=== PATIENT | male | born 1955 | race Caucasian/White ===

== ENCOUNTER 2016-08-29 16:22 | Inpatient (IN) | payer OTHER ==
[~2016-08-29] VITALS: Ht 304.8 cm; Wt 110.2 kg
[~2016-08-29 16:22] MED LIST: ADVAIR 250/501 DISK IH; ADVIL,NUPRIN,M200 MG PO; CADUET 10/101 TABLET PO; DALIRESP500 MCG PO; KLONOPIN0.5 M1 PO; LORTAB 5-325 M1 EACH PO; NICOTINE PATCH1 EAC2 TD; ONE-A-DAY ESSE1 EAC1 PO; PROAIR HFA8.5 GM IH; SPIRIVA1 INHALATI IH; THEO-DUR,THEOC200 MG PO; THERAGRAN1 TABLET PO; VENTOLIN HFA18 GM IH; VITAMIN B-1100 MG PO
[2016-08-29 17:37] LABS: ADD MIUA? YES; BILIRUBIN NEGATIVE; BLOOD LARGE; COLOR YELLOW ((YELLOW)); GLUCOSE (STRIP) NEGATIVE; KETONES NEGATIVE; LEUKOCYTES LARGE; NITRITE POSITIVE; PROTEIN (STRIP) 100; UROBILINOGEN 0.2 MG/DL (0.2-1.0)
[2016-08-29 17:44] LABS: CHLORIDE 97 mEq/L (99-109); POTASSIUM 4.4 mEq/L (3.7-5.4); SODIUM 138 mEq/L (136-147)
[2016-08-29 17:46] LABS: GLUCOSE 114 mg/dL (70-99)
[2016-08-29 17:47] LABS: ANION GAP 14 MEQ/L (2-14)
[2016-08-29 17:50] LABS: GFR ESTIMATE (CALCULATED) > 59 mL/min/
[2016-08-29 17:51] LABS: UREA NITROGEN (BUN) 21 mg/dL (9-23)
[2016-08-29 17:54] LABS: BACTERIA NONE SEEN /HPF; EPITHELIAL CELLS NONE SEEN /HPF; MUCUS TRACE /LPF; RED BLOOD CELLS TNTC /HPF (0-5); UCUL ADDED? YES; WHITE BLOOD CELLS TNTC /HPF (0-5)
[2016-08-29 18:41] LABS: ADD MIUA? YES; BILIRUBIN NEGATIVE; BLOOD LARGE; COLOR YELLOW ((YELLOW)); GLUCOSE (STRIP) NEGATIVE; KETONES NEGATIVE; LEUKOCYTES LARGE; NITRITE NEGATIVE; PROTEIN (STRIP) 30; SPECIFIC GRAVITY 1.015 (1.000-1.030); UROBILINOGEN 0.2 MG/DL (0.2-1.0)
[2016-08-29 18:59] LABS: UCUL ADDED? NO
[2016-08-29] MEDS ORDERED: AMLODIPINE BESY10 MG PO (20:25)
[2016-08-29] MEDS ORDERED: ATORVASTATIN CA10 MG PO (20:26)
[2016-08-29] MEDS ORDERED: METOLAZONE5 MG PO (20:26)
[2016-08-29] MEDS ORDERED: MICRO-K10 ME2 PO (20:27)
[2016-08-29] MEDS ORDERED: PROVENTIL,2.5 MG/3 M IH (20:27)
[2016-08-29] MEDS ORDERED: VITAMIN D31000 UNIT PO (20:27)
[2016-08-29] MEDS ORDERED: PRILOSEC OTC20 MG PO (20:28)
[2016-08-29] MEDS ORDERED: FOLIC ACID0.4 MG PO (20:28)
[2016-08-29] MEDS ORDERED: PERCOCET 5/31 TABLET PO (20:28)
[2016-08-29 21:00] LABS: TOTAL BILIRUBIN 0.4 mg/dL (0.0-1.0)
[2016-08-29 21:04] LABS: ALKALINE PHOSPHATASE 150 IU/L (3-129)
[2016-08-29 21:14] LABS: DIRECT BILIRUBIN 0.2 mg/dL (0.0-0.3)
[2016-08-29 21:48] LABS: BASOPHIL COUNT 0.1 K/uL (0-0.1); EOSINOPHIL (%) 3.8 % (0-5); EOSINOPHIL COUNT 0.6 K/uL (0-0.3); HEMATOCRIT 40.9 % (38.0-50.0); IMMATURE GRANULOCYTE (%) 0.6 % (0.0-0.7); IMMATURE GRANULOCYTE COUNT 0.1 K/uL; LYMPHOCYTE COUNT 1.9 K/uL (1.0-2.8); MCH 30.3 PG (29.0-34.0); MCHC 32.3 G/DL (30.0-36.0); MCV 93.8 FL (86-99); MONOCYTE (%) 7.7 % (3-12); MONOCYTE COUNT 1.2 K/uL (0-0.8); NEUTROPHIL (%) 75.5 % (45-76); PLATELET COUNT 327 K/uL (156-360); RBC DIS.WIDTH-CV 14.4 % (11.8-14.6); RBC DIS.WIDTH-SD 49.7 % (39-53); RED BLOOD COUNT 4.36 M/uL (4.00-5.50); WHITE BLOOD COUNT 15.9 K/uL (4.1-10.2)
[2016-08-29 21:58] VITALS: BP 155/76
[2016-08-29 23:53] VITALS: BP 137/71
[2016-08-30 00:09] LABS: D-DIMER ELISA 1.08 mg/L FEU (< 0.57)
[2016-08-30 04:16] VITALS: BP 131/70
[2016-08-30 05:33] LABS: BASOPHIL COUNT 0.1 K/uL (0-0.1); EOSINOPHIL (%) 4.9 % (0-5); EOSINOPHIL COUNT 0.6 K/uL (0-0.3); HEMATOCRIT 33.8 % (38.0-50.0); IMMATURE GRANULOCYTE (%) 0.4 % (0.0-0.7); IMMATURE GRANULOCYTE COUNT 0.1 K/uL; INSTRUMENT ABS NEUTROPHIL CT 9.5 K/uL; LYMPHOCYTE COUNT 1.3 K/uL (1.0-2.8); MCH 31.2 PG (29.0-34.0); MCHC 33.4 G/DL (30.0-36.0); MCV 93.4 FL (86-99); MONOCYTE (%) 8.8 % (3-12); MONOCYTE COUNT 1.1 K/uL (0-0.8); NEUTROPHIL (%) 74.8 % (45-76); NEUTROPHIL COUNT 9.5 K/uL (1.8-6.4); NRBC (%) 0.2 /100 WBC (0-0); PLATELET COUNT 273 K/uL (156-360); RBC DIS.WIDTH-CV 14.6 % (11.8-14.6); RED BLOOD COUNT 3.62 M/uL (4.00-5.50); WHITE BLOOD COUNT 12.7 K/uL (4.1-10.2)
[2016-08-30 05:51] LABS: TROP-I INTERPRETATION NEGATIVE; TROPONIN-I < 0.01 ng/mL (0.0-0.30)
[2016-08-30 07:55] VITALS: BP 126/67
[2016-08-30 09:09] LABS: ANION GAP 12 MEQ/L (2-14); CHLORIDE 97 MEQ/L (99-109); GFR ESTIMATE (CALCULATED) > 59 mL/min/; GLUCOSE 134 mg/dL (70-99); MAGNESIUM 1.4 mg/dl (1.3-2.7); POTASSIUM 3.5 MEQ/L (3.7-5.4); SAMPLE HEMOLYSIS CHECK 0; SAMPLE ICTERIC CHECK 0; SAMPLE LIPEMIA CHECK 0; SODIUM 137 MEQ/L (136-147); UREA NITROGEN (BUN) 17 mg/dL (9-23)
[2016-08-30 16:00] VITALS: BP 140/64
[2016-08-30 19:34] VITALS: BP 114/59
[2016-08-30 23:53] VITALS: BP 116/55
[2016-08-31 03:52] VITALS: BP 112/63
[2016-08-31 04:52] LABS: BASOPHIL COUNT 0.1 K/uL (0-0.1); EOSINOPHIL (%) 7.2 % (0-5); EOSINOPHIL COUNT 0.6 K/uL (0-0.3); HEMATOCRIT 34.8 % (38.0-50.0); IMMATURE GRANULOCYTE (%) 0.5 % (0.0-0.7); INSTRUMENT ABS NEUTROPHIL CT 5.4 K/uL; LYMPHOCYTE COUNT 1.3 K/uL (1.0-2.8); MCH 29.9 PG (29.0-34.0); MCHC 32.2 G/DL (30.0-36.0); MCV 92.8 FL (86-99); MEAN PLAT.VOLUME 10.2 uM^3 (9.0-12.4); MONOCYTE (%) 8.8 % (3-12); MONOCYTE COUNT 0.7 K/uL (0-0.8); NEUTROPHIL (%) 66.9 % (45-76); NEUTROPHIL COUNT 5.4 K/uL (1.8-6.4); PLATELET COUNT 216 K/uL (156-360); RBC DIS.WIDTH-CV 14.1 % (11.8-14.6); RED BLOOD COUNT 3.75 M/uL (4.00-5.50)
[2016-08-31 04:53] LABS: WHITE BLOOD COUNT 8.1 K/uL (4.1-10.2)
[2016-08-31 05:04] LABS: CHLORIDE 97 mEq/L (99-109); POTASSIUM 3.8 mEq/L (3.7-5.4); SODIUM 136 mEq/L (136-147)
[2016-08-31 05:05] LABS: MAGNESIUM 1.3 mg/dL (1.3-2.7)
[2016-08-31 05:06] LABS: GLUCOSE 105 mg/dL (70-99)
[2016-08-31 05:07] LABS: ANION GAP 10 MEQ/L (2-14)
[2016-08-31 05:10] LABS: GFR ESTIMATE (CALCULATED) > 59 mL/min/
[2016-08-31 05:11] LABS: UREA NITROGEN (BUN) 16 mg/dL (9-23)
[2016-08-31 06:11] LABS: THEOPHYLLINE 5.8 MCG/ML (10-20)
[2016-08-31 08:06] VITALS: BP 139/69
[2016-08-31 11:46] VITALS: BP 134/66
[2016-08-31 15:53] VITALS: BP 120/71
[2016-08-31 19:43] VITALS: BP 114/60
[2016-08-31 23:32] VITALS: BP 123/68
[2016-09-01 04:03] VITALS: BP 125/65
[2016-09-01 06:43] LABS: BASOPHIL COUNT 0.1 K/uL (0-0.1); EOSINOPHIL (%) 5.4 % (0-5); EOSINOPHIL COUNT 0.5 K/uL (0-0.3); IMMATURE GRANULOCYTE (%) 0.6 % (0.0-0.7); IMMATURE GRANULOCYTE COUNT 0.1 K/uL; LYMPHOCYTE COUNT 1.3 K/uL (1.0-2.8); MCH 30.3 PG (29.0-34.0); MCHC 32.6 G/DL (30.0-36.0); MCV 92.9 FL (86-99); MEAN PLAT.VOLUME 10.3 uM^3 (9.0-12.4); MONOCYTE (%) 7.8 % (3-12); MONOCYTE COUNT 0.8 K/uL (0-0.8); NEUTROPHIL (%) 72.1 % (45-76); PLATELET COUNT 230 K/uL (156-360); RBC DIS.WIDTH-CV 14.1 % (11.8-14.6); RBC DIS.WIDTH-SD 48.5 % (39-53); RED BLOOD COUNT 3.66 M/uL (4.00-5.50); WHITE BLOOD COUNT 9.8 K/uL (4.1-10.2)
[2016-09-01 07:09] LABS: ANION GAP 10 MEQ/L (2-14); CHLORIDE 96 MEQ/L (99-109); GFR ESTIMATE (CALCULATED) > 59 mL/min/; GLUCOSE 103 mg/dL (70-99); MAGNESIUM 1.4 mg/dl (1.3-2.7); POTASSIUM 3.7 MEQ/L (3.7-5.4); SAMPLE HEMOLYSIS CHECK 0; SAMPLE ICTERIC CHECK 0; SAMPLE LIPEMIA CHECK 0; SODIUM 135 MEQ/L (136-147); UREA NITROGEN (BUN) 16 mg/dL (9-23)
[2016-09-01 07:37] VITALS: BP 130/73
[2016-09-01 11:51] VITALS: BP 142/76
[2016-09-01 16:24] VITALS: BP 135/67
[2016-09-01 20:30] VITALS: BP 129/66
[2016-09-01 23:59] VITALS: BP 125/61
[2016-09-02 04:00] VITALS: BP 110/70
[2016-09-02 08:06] VITALS: BP 126/60
[2016-09-02] MEDS ORDERED: PREDNISONE10 MG PO (11:19)
[2016-09-02] MEDS ORDERED: PERCOCET 5/31 TABLET PO (11:19)
[2016-09-02] MEDS ORDERED: LEVOFLOXACIN750 MG PO (11:19)
[2016-09-02] MEDS ORDERED: TAMSULOSIN HCL0.4 MG PO (11:19)
[2016-09-02 12:28] VITALS: BP 133/73
[2016-09-02 16:36] VITALS: BP 140/72
== END 2016-09-02 17:13 | disposition home health service (06) | DRG 871 ==
LOC: EME 16:22 → EDOF 19:22 → 3EAST 19:22
PROVIDERS: Emergency Medicine; Internal Medicine; Physician Assistant Medical
DX: A41.9 Sepsis, unspecified organism (principal); J18.0 Bronchopneumonia, unspecified organism; G93.40 Encephalopathy, unspecified; J96.11 Chronic respiratory failure with hypoxia; N17.9 Acute kidney failure, unspecified; E87.2 Acidosis; I11.0 Hypertensive heart disease with heart failure; I50.30 Unspecified diastolic (congestive) heart failure; I24.8 Other forms of acute ischemic heart disease; J44.1 Chronic obstructive pulmonary disease with (acute) exacerbation; I27.2 Other secondary pulmonary hypertension; E78.5 Hyperlipidemia, unspecified; Z99.81 Dependence on supplemental oxygen; F41.9 Anxiety disorder, unspecified; Z87.891 Personal history of nicotine dependence; R33.9 Retention of urine, unspecified; R31.0 Gross hematuria; R00.0 Tachycardia, unspecified
CPT/HCPCS: 71010; 71250; 80048; 80076; 80198; 80202; 81003; 82565; 83605; 83735; 83880; 84484; 85025; 85027; 85379; 87040; 87077; 87086; 87186; 93005; 93306; 93970; 94640; 94640 76; 94760; 94799; 99202; 99281; 99285; J1650; J2543; J3370; J7050; J7120; J7512